=== PATIENT | female | born 1935 | race Asian ===

== ENCOUNTER 2018-03-17 09:22 | Emergency (ER) | payer MEDICARE, OTHER ==
[~2018-03-17] VITALS: Ht 162.6 cm; Wt 59.0 kg
[2018-03-17 10:34] LABS: Basophils # (auto) 0 uL; Basophils % (auto) 0.8 % (0.0-2.0); Eosinophils # (auto) 0.1 uL; Eosinophils % (auto) 1.4 % (0.0-7.0); Hemoglobin 13.1 g/dL (12.2-16.2); Lymphocytes # (auto) 1.2 uL; Lymphocytes % (auto) 31.5 % (10.0-50.0); Mean Corpuscular Hemoglobin 33.8 pg (28.0-32.0); Mean Corpuscular Hgb Conc. 33.7 g/dL (32.0-36.0); Mean Corpuscular Volume 100.5 fL (80.0-100.0); Monocytes # (auto) 0.4 uL; Monocytes % (auto) 10.2 % (0.0-12.0); Neutrophils # (auto) 2.2 uL; Neutrophils % (auto) 56.1 % (37.0-80.0); Nucleated Red Blood Cells % 0.1 %; Platelet Count (auto) 186 10^3/uL (140-450); Red Blood Cells 3.88 10^6/uL (4.0-5.20); Red Cell Distribution Width 13.1 % (11.8-14.3); White Blood Cell 3.8 10^3/uL (4.4-10.8)
[2018-03-17] MEDS ORDERED: ASPirin 81 mg TAB PO ONE (10:45)
[2018-03-17 10:52] LABS: Alanine Aminotransferase 18 U/L (13-56); Alkaline Phosphatase 116 U/L (45-117); Anion Gap 8 (5-15); Aspartate Aminotransferase 16 U/L (15-37); BUN/Creatinine Ratio 24.7; Bilirubin, Total 0.6 mg/dL (0.2-1.0); Blood Urea Nitrogen 19 mg/dL (7-18); Calcium 8.8 mg/dL (8.5-10.1); Carbon Dioxide 26 mmol/L (21-32); Chloride 107 mmol/L (98-107); GFR African American 93 mL/min; GFR Non-African American 76 mL/min; Glucose 82 mg/dL (74-106); Magnesium 2.8 mg/dL (1.6-2.6); Potassium 3.5 mmol/L (3.5-5.1); Sodium 141 mmol/L (136-145)
[2018-03-17 11:55] VITALS: BP 106/76
[2018-03-17] MEDS ORDERED: ALUM & MAG HYDROX-SIMETH LIQ(MAALOX) 30 ML PO ONE (13:15)
[2018-03-17] MEDS ORDERED: ZOLPIDEM TARTRATE 5 MG TAB PO PRN (13:15)
[2018-03-17] MEDS ORDERED: LORazepam 0.5 MG TAB PO PRN (13:15)
[2018-03-17] MEDS ORDERED: ONDANSETRON HCL 4 MG/2 ML VIAL IV PRN (13:15)
[2018-03-17] MEDS ORDERED: MORPHINE SULFATE 4 MG/ML SYR/VIAL IV PRN ×2 (13:15)
[2018-03-17] MEDS ORDERED: ACETAMINOPHEN 325 MG TAB PO PRN (13:15)
[2018-03-17] MEDS ORDERED: NITROGLYCERIN 0.4 MG SL TAB SL PRN ×2 (13:15)
[2018-03-17] MEDS ORDERED: DOCUSATE SOD 100 MG CAP PO ONE (13:30)
[2018-03-17] MEDS ORDERED: ENALAPRIL MALEATE 2.5 MG TAB PO ONE (13:30)
[2018-03-17] MEDS ORDERED: CLOPIDOGREL BISULFATE 75 MG TAB PO ONE (13:30)
[2018-03-17] MEDS ORDERED: CARVEDILOL 3.125 MG TAB PO ONE (13:30)
[2018-03-17] MEDS ORDERED: SODIUM CHLOR 0.9% PF (SALINE LOCK) 10ML VIAL/SYR IV SCH (14:00)
[2018-03-17] MEDS ORDERED: ENALAPRIL MALEATE 2.5 MG TAB PO SCH (22:00)
[2018-03-17] MEDS ORDERED: CARVEDILOL 3.125 MG TAB PO SCH (22:00)
[2018-03-17] MEDS ORDERED: ATORVASTATIN 20 MG TAB PO SCH (22:00)
[2018-03-18] MEDS ORDERED: ASPirin 81 mg TAB PO SCH (10:00)
[2018-03-18] MEDS ORDERED: CLOPIDOGREL BISULFATE 75 MG TAB PO SCH (10:00)
[2018-03-18] MEDS ORDERED: DOCUSATE SOD 100 MG CAP PO SCH (10:00)
== END 2018-03-17 14:41 | disposition left against medical advice (07) ==
LOC: ER 09:22 → EDBD 09:22 → TELE 09:23 → UNDOADMIN 09:23 → ER 14:41
DX: R07.9 Chest pain, unspecified (principal); G93.41 Metabolic encephalopathy; R41.82 Altered mental status, unspecified; F03.90 Unspecified dementia, unspecified severity, without behavioral disturbance, psychotic disturbance, mood disturbance, and anxiety; F20.9 Schizophrenia, unspecified; N18.2 Chronic kidney disease, stage 2 (mild); E83.41 Hypermagnesemia; I24.9 Acute ischemic heart disease, unspecified
CPT/HCPCS: 36415; 80053; 83735; 84484; 85025; 93005

== ENCOUNTER 2019-03-26 10:16 | Emergency (ER) | payer MEDICARE, OTHER ==
[~2019-03-26] VITALS: Ht 160 cm; Wt 63.5 kg
[2019-03-26 12:08] LABS: Basophils # (auto) 0 uL; Basophils % (auto) 0.2 % (0.0-2.0); Eosinophils # (auto) 0.1 uL; Eosinophils % (auto) 0.8 % (0.0-7.0); Hematocrit 40.6 % (36.0-46.0); Hemoglobin 13.6 g/dL (12.2-16.2); Lymphocytes # (auto) 0.6 uL; Lymphocytes % (auto) 8.3 % (10.0-50.0); Mean Corpuscular Hemoglobin 33.9 pg (28.0-32.0); Mean Corpuscular Hgb Conc. 33.5 g/dL (32.0-36.0); Mean Corpuscular Volume 101.3 fL (80.0-100.0); Monocytes # (auto) 0.5 uL; Monocytes % (auto) 8.1 % (0.0-12.0); Neutrophils # (auto) 5.6 uL; Neutrophils % (auto) 82.6 % (37.0-80.0); Nucleated Red Blood Cells % 0.1 %; Platelet Count (auto) 174 10^3/uL (140-450); Red Cell Distribution Width 13.6 % (11.8-14.3); White Blood Cell 6.7 10^3/uL (4.4-10.8)
[2019-03-26 12:13] LABS: Urine Bacteria NONE SEEN /hpf (None Seen); Urine Blood TRACE /uL (Negative); Urine Mucus FEW (None Seen); Urine Specific Gravity 1.017 (1.001-1.035); Urine WBC 83 /hpf (0 - 5)
[2019-03-26 12:18] LABS: Albumin 4.4 g/dL (3.4-5.0); Potassium 3.8 mmol/L (3.5-5.1)
[2019-03-26 12:21] LABS: BUN/Creatinine Ratio 23.5; Bilirubin, Total 1.5 mg/dL (0.2-1.0); Total Protein 8.4 g/dL (6.4-8.2)
[2019-03-26 15:18] VITALS: BP 116/70
[2019-03-26] MEDS ORDERED: traMADol HCL 50 MG TAB ONE (17:33)
[2019-03-26] MEDS ORDERED: traMADol HCL 50 MG TAB PO ONE (17:45)
== END 2019-03-26 17:51 | disposition home or self-care (01) ==
LOC: EDUNIT# 10:16 → ER 10:16 → EDBD 10:16 → ER 17:51
DX: S32.049A Unspecified fracture of fourth lumbar vertebra, initial encounter for closed fracture (principal); S33.5XXA Sprain of ligaments of lumbar spine, initial encounter; M54.16 Radiculopathy, lumbar region; X58.XXXA Exposure to other specified factors, initial encounter; Y93.89 Activity, other specified; Y92.89 Other specified places as the place of occurrence of the external cause; Y99.8 Other external cause status
CPT/HCPCS: 36415; 72131; 80053; 81001; 85025